=== PATIENT | female | born 1990 | race Caucasian/White ===

== ENCOUNTER 2024-10-29 19:14 | Inpatient (IN) | payer MEDICAID ==
[~2024-10-29] VITALS: Ht 172.7 cm; Wt 67.6 kg
[2024-10-29 19:52] LABS: BASOPHILS % 0.3 % (0.0-2.0); EOSINOPHILS % 0.3 % (0.0-5.0); HEMATOCRIT. 35.4 % (36.0-48.0); HEMOGLOBIN. 11.7 g/dL (12.0-16.0); LYMPHOCYTES % 8.5 % (20.0-50.0); MEAN CORPUSCULAR HEMOGLOBIN 32.1 pg (28.0-32.0); MEAN CORPUSCULAR HGB CONC 33.1 g/dL (31.0-37.0); MEAN CORPUSCULAR VOLUME 96.9 fL (81.0-99.0); MEAN PLATELET VOLUME 10.3 fl (7.4-10.4); MONOCYTES % 7.1 % (2.0-8.0); NEUTROPHILS % 83.8 % (40.0-76.0); PLATELET 196 x1000/uL (130-400); RED BLOOD CELL COUNT 3.65 mill/uL (4.2-5.4)
[2024-10-29 19:56] LABS: CHLORIDE 106 mEq/L (98-107); SODIUM 137 mEq/L (136-145)
[2024-10-29 19:57] LABS: CARBON DIOXIDE 23 mEq/L (21-32)
[2024-10-29 19:58] LABS: INR 1.1; PROTHROMBIN TIME 11.5 sec (9.6-11.0)
[2024-10-29 20:02] LABS: CREATININE 0.8 mg/dL (0.6-1.0); GLUCOSE 112 mg/dL (70-105); UREA NITROGEN BLOOD 13 mg/dL (9-23)
[2024-10-30] MEDS: MORPHINE SULFATE 4 MG/ML INJ (FOR IV/IM USE) IM NR (01:27)
[2024-10-30] MEDS ORDERED: CEFTRIAXONE 1GM/50ML 50 ML IV ONE (02:30)
[2024-10-30] MEDS ORDERED: METRONIDAZOLE 500 MG PREMIX 100 ML IV ONE (02:30)
[2024-10-30] MEDS ORDERED: DOXYCYCLINE HYCLATE 100 MG/VIAL IV ONE (02:30)
[2024-10-30 03:00] LABS: CLARITY URINE CLEAR (CLEAR); COLOR URINE YELLOW (YELLOW); GLUCOSE URINE NEGATIVE (NEGATIVE); KETONES URINE 1+ (NEGATIVE); LEUKOCYTE ESTERASE URINE NEGATIVE (NEGATIVE); NITRITE URINE NEGATIVE (NEGATIVE); OCCULT BLOOD URINE 2+ (NEGATIVE); PH URINE 5.5 (4.5-8.0); PROTEIN URINE TRACE (NEGATIVE); SPECIFIC GRAVITY URINE 1.096 (1.005-1.030)
[2024-10-30 03:06] LABS: BACTERIA URINE NONE SEEN; SQUAMOUS EPITHELIAL CELL URINE FEW /lpf (RARE/1+); WBC URINE 0-2 /hpf (0-2)
[2024-10-30] MEDS: METRONIDAZOLE 500 MG PREMIX 100 ML IV NR (03:07)
[2024-10-30] MEDS: SODIUM CHLORIDE 0.9% (SEPSIS BOLUS) IV ONE (03:07)
[2024-10-30] MEDS: MORPHINE SULFATE 4 MG/ML INJ (FOR IV/IM USE) IV ONE (03:07)
[2024-10-30] MEDS: CEFTRIAXONE 1GM/50ML 50 ML IV NR (04:01)
[2024-10-30] MEDS: DOXYCYCLINE 100MG/100ML 100 ML IV NR (04:09)
[2024-10-30 05:30] VITALS: BP 99/50; PULSE 75; RESP 18; TEMP 36.5
[2024-10-30 08:00] VITALS: BP_SYST 141; BP_SYST 96; BP_DIAS 56; BP_DIAS 72; PULSE 77; PULSE 81; RESP 17; RESP 18; TEMP 36.4; TEMP 36.6; O2SAT 98; O2SAT 99
[2024-10-30] MEDS: PIPERACILLIN/TAZO 3.375G/50ML 50 ML IV SCH (11:41)
[2024-10-30] MEDS: SODIUM CHLORIDE 0.9% 1,000 ML IV SCH (11:48)
[2024-10-30] MEDS: ACETAMINOPHEN 325MG TABLET PO PRN (11:54)
[2024-10-30 12:00] VITALS: BP 84/44; PULSE 72; RESP 17; TEMP 36.3; O2SAT 84
[2024-10-30] MEDS: SODIUM CHLORIDE 0.9% 500 ML IV ONE (13:07)
[2024-10-30 16:00] VITALS: BP 87/40; PULSE 64; RESP 18; TEMP 36.3; O2SAT 100
[2024-10-30] MEDS: CEFTRIAXONE 1GM/50ML 50 ML IV SCH (16:57)
[2024-10-30 20:00] VITALS: BP 97/55; PULSE 76; RESP 17; TEMP 36.9; O2SAT 100
[2024-10-30] MEDS: METRONIDAZOLE 500MG TABLET PO SCH (20:33)
[2024-10-30] MEDS: DOXYCYCLINE HYCLATE 100MG CAPSULE PO SCH (20:33)
[2024-10-31] VITALS: BP 91/52; PULSE 80; RESP 18; TEMP 36.8; O2SAT 100
[2024-10-31 04:00] VITALS: BP 85/56; PULSE 68; RESP 16; TEMP 36.6; O2SAT 99
[2024-10-31 07:10] LABS: CHLORIDE 111 mEq/L (98-107); POTASSIUM 3.8 mEq/L (3.5-5.1); SODIUM 139 mEq/L (136-145)
[2024-10-31 07:11] LABS: CALCIUM 8.6 mg/dL (8.7-10.4); CARBON DIOXIDE 24 mEq/L (21-32)
[2024-10-31 07:16] LABS: CREATININE 0.6 mg/dL (0.6-1.0); GLUCOSE 101 mg/dL (70-105); UREA NITROGEN BLOOD 5 mg/dL (9-23)
[2024-10-31 07:19] LABS: HEMATOCRIT. 29.9 % (36.0-48.0); HEMOGLOBIN. 10.4 g/dL (12.0-16.0); MEAN CORPUSCULAR HGB CONC 34.7 g/dL (31.0-37.0); MEAN CORPUSCULAR VOLUME 94.9 fL (81.0-99.0); MEAN PLATELET VOLUME 10.6 fl (7.4-10.4); PLATELET 165 x1000/uL (130-400); RED BLOOD CELL COUNT 3.15 mill/uL (4.2-5.4); RED CELL DISTRIBUTION WIDTH 12.8 % (11.6-14.6); WHITE BLOOD COUNT 7.6 x1000/uL (4.5-11.0)
[2024-10-31 07:39] LABS: DIFFERENTIAL COMMENT 1
[2024-10-31 08:00] VITALS: BP 94/54; PULSE 66; RESP 18; TEMP 36.8; O2SAT 98
[2024-10-31 09:25] LABS: PLATELET ESTIMATE NORMAL
[2024-10-31 12:00] VITALS: BP 94/53; PULSE 71; RESP 18; TEMP 36.9; O2SAT 100
[2024-10-31 14:51] VITALS: BP 115/66; PULSE 80; TEMP 98.5; O2SAT 97
== END 2024-10-31 15:30 | disposition home or self-care (01) | DRG 720 ==
LOC: ER 19:14 → EDBEDREQ 10-30 02:58 → 5WST 10-30 03:05 → EDBEDREQ 10-30 03:15 → EDBEDREQSVC 10-30 03:15
PROVIDERS: ADMIT Internal Medicine; ATTEND Internal Medicine
DX: A41.9 Sepsis, unspecified organism (principal); N70.93 Salpingitis and oophoritis, unspecified
CPT/HCPCS: 36415; 71045; 74177; 76830; 76856; 80048; 81003; 83605; 84145; 84702; 85025; 85651; 86141; 86592; 87210; 87491; 87591; 93005; 99291; A4606; J0696; J2270; J2543; J3490; J7030

== ENCOUNTER 2025-01-07 10:32 | Emergency (ER) | payer MEDICAID ==
[~2025-01-07] VITALS: Ht 152.4 cm; Wt 79.0 kg
[2025-01-07 10:47] VITALS: TEMP 36.8; O2SAT 100
[2025-01-07] MEDS: ACETAMINOPHEN 325MG TABLET PO ONE (13:41)
[2025-01-07] MEDS: KETOROLAC 15MG/ML VIAL IM ONE (13:41)
[2025-01-07] MEDS ORDERED: LIDO-53 TP (15:18)
[2025-01-07] MEDS ORDERED: ACET-2708 MT (15:18)
[2025-01-07] MEDS ORDERED: NAPR-679 MT (15:18)
[2025-01-07 16:22] VITALS: BP 113/75; PULSE 70; RESP 16; O2SAT 100
== END 2025-01-07 16:23 | disposition home or self-care (01) ==
LOC: ER 10:32
DX: S30.0XXA Contusion of lower back and pelvis, initial encounter (principal); W10.9XXA Fall (on) (from) unspecified stairs and steps, initial encounter; Z79.899 Other long term (current) drug therapy; Y93.89 Activity, other specified; Y92.89 Other specified places as the place of occurrence of the external cause; Y99.8 Other external cause status
CPT/HCPCS: 81025; 72070; 72100; 96372; 99284; J1885; Z7610

== ENCOUNTER 2025-01-26 21:38 | Emergency (ER) | payer MEDICAID ==
[~2025-01-26] VITALS: Ht 152.4 cm; Wt 74.2 kg
[~2025-01-26 21:38] MED LIST: ACET-2708 MT; LIDO-53 TP; NAPR-679 MT
[2025-01-26 21:40] VITALS: TEMP 37.1; O2SAT 98
[2025-01-26] MEDS: LIDOCAINE 5% PATCH TOP SCH (23:36)
[2025-01-26] MEDS: KETOROLAC 15MG/ML VIAL IM ONE (23:36)
[2025-01-27] MEDS ORDERED: NAPR-1176 MT (00:40)
[2025-01-27] MEDS ORDERED: LIDO-53 TP (00:40)
[2025-01-27 01:08] VITALS: BP 129/72; PULSE 75; RESP 16; O2SAT 99
== END 2025-01-27 01:09 | disposition home or self-care (01) ==
LOC: ER 21:38
DX: M54.50 Low back pain, unspecified (principal); Z79.1 Long term (current) use of non-steroidal anti-inflammatories (NSAID); W10.9XXA Fall (on) (from) unspecified stairs and steps, initial encounter; Y93.89 Activity, other specified; Y92.89 Other specified places as the place of occurrence of the external cause; Y99.8 Other external cause status
CPT/HCPCS: 99283; 96372; J1885